=== PATIENT | female | born 2000 | race Caucasian/White ===

== ENCOUNTER 2018-04-06 22:56 | Emergency (ER) | payer OTHER ==
[~2018-04-06] VITALS: Ht 154.9 cm; Wt 99.6 kg
[~2018-04-06 22:56] MED LIST: FLONASE16 G1 BOTH NARES; FLUOXETINE HCL20 MG PO; MOTRIN600 MG PO; MUCUS ER600 MG PO; NAPROXEN500 MG PO; ROBITUSSIN NIG118 ML PO; TESSALON PERLE100 MG PO
[2018-04-07 00:40] LABS: HEMATOCRIT 35.7 % (36.0-46.0); HEMOGLOBIN 12.6 G/DL (11.9-15.5); MCH 30.8 PG (29.0-34.0); MCHC 35.3 G/DL (30.0-36.0); MCV 87.3 FL (83-99); PLATELET COUNT 455 K/uL (156-360); RBC DIS.WIDTH-SD 38.1 % (39-53); RED BLOOD COUNT 4.09 M/uL (3.80-5.20); WHITE BLOOD COUNT 9.6 K/uL (4.1-10.2)
[2018-04-07 01:15] LABS: ALBUMIN 4.4 g/dL (3.2-4.8); CHLORIDE 106 mEq/L (99-109); POTASSIUM 3.8 mEq/L (3.7-5.4); SODIUM 141 mEq/L (136-147)
[2018-04-07 01:18] LABS: GLUCOSE 107 mg/dL (70-99); TOTAL PROTEIN 7.5 g/dL (6.4-8.3)
[2018-04-07 01:20] LABS: TOTAL BILIRUBIN 0.4 mg/dL (0.0-1.0)
[2018-04-07 01:21] LABS: ALKALINE PHOSPHATASE 56 IU/L (3-129); CREATININE 0.8 mg/dL (0.6-1.3); GFR ESTIMATE (CALCULATED) > 59 mL/min/
[2018-04-07 01:22] LABS: UREA NITROGEN (BUN) 6 mg/dL (9-23)
[2018-04-07 01:23] LABS: AST (GOT) 14 IU/L (2-34)
[2018-04-07 01:24] LABS: ALT (GPT) 16 IU/L (3-49)
[2018-04-07 01:30] LABS: QUANTITATIVE HCG < 4.0 MIU/ML
[2018-04-07 03:19] LABS: APPEARANCE CLEAR ((CLEAR)); BILIRUBIN NEGATIVE; BLOOD NEGATIVE; COLOR YELLOW ((YELLOW)); GLUCOSE (STRIP) NEGATIVE; KETONES NEGATIVE; LEUKOCYTES TRACE; NITRITE NEGATIVE; PROTEIN (STRIP) NEGATIVE; SPECIFIC GRAVITY 1.008 (1.000-1.030); UROBILINOGEN 0.2 MG/DL (0.2-1.0)
[2018-04-07 03:21] LABS: BACTERIA 1+ /HPF; EPITHELIAL CELLS 1+ /HPF; MUCUS TRACE /LPF; RED BLOOD CELLS 0-5 /HPF (0-5); UCUL ADDED? NO; WHITE BLOOD CELLS 0-5 /HPF (0-5)
[2018-04-07 03:40] LABS: C DIFF TOXIN NEGATIVE (NEGATIVE)
[2018-04-07] MEDS ORDERED: CIPRO500 MG PO (04:23)
[2018-04-07 04:28] VITALS: BP 135/71
== END 2018-04-07 04:29 | disposition home or self-care (01) ==
LOC: EME 22:56
PROVIDERS: Physician Assistant
DX: R19.7 Diarrhea, unspecified (principal); F32.9 Major depressive disorder, single episode, unspecified
CPT/HCPCS: 80053; 81003; 83630; 84702; 85027; 87177; 87493; 87506; 99281; 99285; J1885; J7030